=== PATIENT | female | born 2000 | race Caucasian/White ===

== ENCOUNTER 2022-03-18 19:23 | Emergency (ER) | payer OTHER | END 2022-03-18 21:55 | disposition home or self-care (01) | LOC: ER1 19:23 | DX: O99.891 Other specified diseases and conditions complicating pregnancy (principal); R53.1 Weakness; O24.312 Unspecified pre-existing diabetes mellitus in pregnancy, second trimester; O99.332 Smoking (tobacco) complicating pregnancy, second trimester; F17.290 Nicotine dependence, other tobacco product, uncomplicated; Z3A.22 22 weeks gestation of pregnancy | CPT/HCPCS: 99283 ==